=== PATIENT | female | born 1985 | race Asian ===

== ENCOUNTER 2021-04-30 11:36 | Outpatient (CLI) | payer OTHER, SELFPAY ==
[2021-04-30 12:05] LABS: Basophils Absolute Auto 0.05 K/mm3 (0.00-0.10); Eosinophils Absolute Auto 0.09 K/mm3 (0.02-0.50); Eosinophils Percent Auto 1.8 % (1.0-6.0); Hematocrit 38.7 % (35.0-49.0); Immature Granulocyte Absolute 0.01 K/mm3 (0.00-0.00); Immature Granulocyte Percent A 0.2 % (0.0-0.0); Lymphocytes Absolute Auto 1.78 K/mm3 (1.10-4.50); Lymphocytes Percent Auto 35.6 % (18.0-42.0); Mean Corpuscular Hemoglobin 24.5 pg (27.0-31.0); Mean Platelet Volume 10.4 fl (9.2-11.8); Monocytes Absolute Auto 0.37 K/mm3 (0.10-0.90); Monocytes Percent Auto 7.4 % (2.0-11.0); Neutrophils Absolute Auto 2.7 K/mm3 (1.7-7.2); Platelet Count Result 218 K/mm3 (150-420); Red Cell Distribution Width 14.9 % (11.6-14.4)
[2021-04-30 12:55] LABS: Hemoglobin A1C 6.1 % (<5.7)
[2021-04-30 13:39] LABS: Alanine Aminotransferase 30 U/L (14-59); Albumin Level 4.1 g/dL (3.4-5.0); Alkaline Phosphatase 71 U/L (46-116); Anion Gap 11 mmol/L (8-16); Aspartate Amino Transferase 15 U/L (15-37); Bilirubin,Total 0.3 mg/dL (0.00-1.00); Blood Urea Nitrogen 13 mg/dL (7-18); Calcium 8.2 mg/dL (8.5-10.1); Carbon Dioxide 24 mmol/L (21-32); Chloride 104 mmol/L (98-108); Cholesterol 252 mg/dL (0-200); Estimated Glomerular Filt Rate > 60; Glucose 106 mg/dL (70-99); HDL Direct 70 mg/dL (40-60); LDL Cholesterol Calculated 164 mg/dL (<130); Osmolality Calculated 288 mOsm/kg (285-295); Potassium 4.4 mmol/L (3.5-5.1); Sodium 139 mmol/L (136-145); Total Protein 7.4 g/dL (6.4-8.2); Triglycerides 91 mg/dL (0-150)
[2021-04-30 13:53] LABS: Thyroid Stimulating Hormone Reflex 0.81 u/IU/mL (0.36-3.74)
[2021-04-30 14:20] LABS: Vitamin B12 525 pg/mL (193-986)
[2021-05-02 14:31] LABS: Vitamin D 25 Hydroxy 10 ng/mL (30-100)
== END 2021-04-30 11:37 | disposition home or self-care (01) ==
PROVIDERS: PCP Obstetrics & Gynecology; Visit Provider Obstetrics & Gynecology
DX: Z00.00 Encounter for general adult medical examination without abnormal findings (principal); M79.89 Other specified soft tissue disorders
CPT/HCPCS: 36415; 80053; 80061; 82306; 82607; 83036; 84443; 85025